=== PATIENT | female | born 1955 | race Caucasian/White ===

== ENCOUNTER 2020-01-23 11:06 | Emergency (ER) | payer BC ==
[2020-01-23] MEDS ORDERED: LASIX40 MG PO (11:33)
--- NOTE | 2020-01-23 12:49 | Emergency Department Note ---
History of Present Illnes History of Present Illness Chief Complaint: General Medicine Complaints History of Present Illness This is a 64 year old female arrives to the ED with complaints of bilateral lower extremities feet swelling for several weeks. Patient denies any shortness of breath, states she is on chronic home O2 secondary to her COPD and emphysema. Patient is insisting she does not want a cardiac workup and just wants something off of her feet. Patient states her repair service dispatcher is at [facility] but she is not able to see him for several weeks secondary to covid Chief Complaint Comment C/O SWELLING TO BILATERAL LOWER LEGS X 3 WEEKS STATES SHE CALLED HER PCP WHO CAN'T SEE HER TILL FEBRUARY AND SHE FELT SHE COULDN'T WAIT PEDAL PULSES PALPABLE PRESENTS WITH +1 EDEMA HX OF COPD FORMER SMOKER PT ON HOME O2 PT CAME INTO ER WITHOUT HER O2 SEEN BY DR DUTTA Historian: Patient Arrival Mode: Car Onset (how long ago): week(s) Onset quality: unable to specify Duration (how long): week(s) Progression: unable to specify Chronicity: new Context: Denies recent illness, Denies trauma/injury, Denies new medications, Denies hx of DVT/PE Relieving factors: none Exacerbating factors: none Treatments prior to arrival: none Past Medical/Family History Physician Review I have reviewed the patient's past medical and family history. Any updates have been documented here. Past Medical History Recent Fever: No Clinical Suspicion of Infectio: No New/Unexplained Change in Ment: No Past Medical History: COPD Other Medical History: EMPHYSEMA Past Surgical History: Cholecysctectomy Social History Physically hurt or threatened: No Review of Systems Review of Systems Constitutional: Reports no symptoms EENTM: Reports no symptoms Cardiovascular: Reports no symptoms Respiratory: Reports no symptoms Gastrointestinal: Reports no symptoms Genitourinary: Reports no symptoms Musculoskeletal: Reports as per HPI, Reports joint swelling Integumentary: Reports no symptoms Neurological: Reports no symptoms Psychological: Reports no symptoms Endocrine: Reports no symptoms Hematological/Lymphatic: Reports no symptoms Review of other systems: All other systems negative Physical Exam Related Data Allergies: Coded Allergies: No Known Allergies (Unverified , 01/23/20) Triage Vital Signs Vital Signs Date Time Temp Pulse Resp B/P (MAP) Pulse Ox O2 Delivery O2 Flow Rate FiO2 01/23/20 11:30 98.4 128 18 169/108 93 Room Air Vital signs reviewed: Yes Physical Exam CONSTITUTIONAL Constitutional: Present well-developed, Present well-nourished HENT HENT: Present normocephalic, Present atraumatic, Present oropharynx clear/moist, Present nose normal HENT L/R: Present left ext ear normal, Present right ext ear normal EYES Eyes: Reports PERRL, Reports conjunctivae normal NECK Neck: Present ROM normal PULMONARY Pulmonary: Present effort normal, Present breath sounds normal CARDIOVASCULAR Cardiovascular: Present regular rhythm, Present heart sounds normal, Present capillary refill normal, Present normal rate GASTROINTESTINAL Abdominal: Present soft, Present nontender, Present bowel sounds normal GENITOURINARY Genitourinary: Present exam deferred SKIN Skin: Present warm, Present dry MUSCULOSKELETAL Musculoskeletal: Present edema NEUROLOGICAL Neurological: Present alert, Present oriented x 3, Present no gross motor or sensory deficits PSYCHOLOGICAL Psychological: Present mood/affect normal, Present judgement normal Assessment & Plan Medical Decision Making MDM 64-year-old female arrived to the ED with complaints of bilateral pedal edema, patient states she does not want have any further workup wants to get the fluid off of her extremities. Patient's oxygen saturations 100% on room air, she is on home oxygen secondary to her advanced lung disease. Patient informed that her pedal edema may be secondary to newly diagnosed congestive heart failure. Patient expressed understanding. I personally faxed patient's information over to a repair service dispatcher to get her an appointment this week. Patient was contacted after discharge and informed of her appointment medical decision-making. Assessment & Plan Final Impression: (1) Pedal edema Depart Disposition: HOME, SELF-CARE Last Vital Signs Date Time Temp Pulse Resp B/P (MAP) Pulse Ox O2 Delivery O2 Flow Rate FiO2 01/23/20 11:30 98.4 128 18 169/108 93 Room Air Home Meds Active Scripts Furosemide (LASIX) 40 Mg Tablet, 40 MG PO DAILY, #30 TAB Prov:ANGELINA DUTTA DO 01/23/20 ANGELINA DUTTA DO Jan 23, 2020 12:49
== END 2020-01-23 11:41 | disposition home or self-care (01) ==
LOC: ER 11:40
DX: R60.9 Edema, unspecified (principal); J44.9 Chronic obstructive pulmonary disease, unspecified; Z99.81 Dependence on supplemental oxygen; Z87.891 Personal history of nicotine dependence
CPT/HCPCS: 99282